=== PATIENT | female | born 1995 ===

== ENCOUNTER 2024-12-11 09:19 | Emergency (ER) | payer OTHER ==
[~2024-12-11] VITALS: Ht 149.9 cm; Wt 60.3 kg
[2024-12-11 10:34] LABS: BASO % 0.4 % (0.1-1.2); EOS # 0.03 (0.04-0.54); EOS % 0.4 % (0.7-7.0); LYMPH # 1.71 (1.18-3.74); LYMPH % 24.9 % (19.3-53.1); MEAN PLATELET VOLUME 11.90 fl (9.4-12.4); MONO # 0.31 (0.24-0.82); MONO % 4.5 % (4.7-12.5); NEUT # 4.77 (1.56-6.13); NEUT % 69.7 % (34.0-71.1); RED CELL DISTRIBUTION WIDTH 13.4 % (11.6-14.4)
== END 2024-12-11 14:37 | disposition home or self-care (01) ==
LOC: ER 09:19
PROVIDERS: Emergency Medicine
DX: O20.9 Hemorrhage in early pregnancy, unspecified (principal); Z3A.09 9 weeks gestation of pregnancy